=== PATIENT | male | born 1970 | race Caucasian/White ===

== ENCOUNTER 2018-11-18 06:40 | Day surgery (SDC) | payer OTHER ==
[~2018-11-18] VITALS: Ht 167.6 cm; Wt 103.0 kg
[~2018-11-18 06:40] MED LIST: DICYCLOMINE HCL20 MG PO; GEODON40 MG PO; LAMICTAL XR200 MG PO; LEVETIRACETAM750 M1 PO; MOBIC15 MG PO
--- NOTE | 2018-11-18 09:09 | NUR ---
11/18/18 0909 Karo Ramsey 0757 PT TO PACU SLEEPY BUT ABOUSABLE DENIES PAIN OR NAUSEA
--- NOTE | 2018-11-19 05:51 | OR ---
[facility] [address], [place] [address] Signed DATE OF OPERATION: 11/18/2018 SURGEON: Juju Ding MD PREOPERATIVE DIAGNOSES: 1. Chronic diarrhea. 2. Colonoscopy in 2000. POSTOPERATIVE DIAGNOSES: 1. Unremarkable colonoscopy. 2. Mildly indurated prostate gland. PROCEDURE PERFORMED: Colonoscopy with random cold biopsies. ESTIMATED BLOOD LOSS: None. INDICATIONS: Birdie is a 47-year-old gentleman who has had a long history of chronically loose stools. He spoke of a colonoscopy in [place], [place] back in 2000. He can not remember the exact results, but he does remember the term irritable bowel syndrome associated with diarrhea. He has had continued chronic loose stools. He has been working with his primary care provider. His stool studies have all been negative. He was therefore asked to see me for consideration of a colonoscopy with biopsies. He told me there is no family history of colon cancer, polyps or inflammatory bowel disease. In the office, I reviewed with him the nature of a colonoscopy. He does understand the nature of that test along with the risks including, but not limited to gas bloating, crampy abdominal pain, bleeding, perforation, requiring surgery, and missed diagnosis. He also understands the need for IV conscious sedation. He had expressed understanding and wished to proceed. PROCEDURE NOTE: Birdie was taken into our endoscopy suite and placed in the left lateral decubitus position. He was given IV sedation with 6 mg of Versed and 125 mcg of fentanyl. A digital rectal exam was performed and this was unremarkable except that his prostate gland has started to become a little indurated. No dominant nodules. No significant increase in size. He had good sphincter tone. After this, the adult colonoscope was introduced and advanced under direct visualization of camera into the cecum itself without difficulty. It took just a little extra sedation and some abdominal compression Electronically Signed By: JUJU DING MD 11/19/18 0551 PATIENT NAME: BIRDIE GAMING OPERATIVE REPORT DATE OF : 66 REPORT #: [id number] PHYSICIAN: JUJU DING MD PCP: JACIEL WILDER MD REPORT IS CONFIDENTIAL AND NOT TO BE RELEASED WITHOUT AUTHORIZATION [facility] [address], [place] [address] Signed in order to advance the scope. His prep was quite excellent. We could easily see the appendiceal orifice, the [place]'s foot and the ileocecal valve. We had taken pictures throughout for photodocumentation. We made multiple attempts to turn the camera into the terminal ileum without success. He had nice clean green liquid bilious fluid coming into the cecum. We saw no evidence of any inflammatory changes throughout the entire colon. There was no diverticulosis, no colonic polyps. There were no AV malformations. We took multiple random cold biopsies throughout the colon as the colonoscope was withdrawn. The rectum itself was unremarkable. Upon retroflexion of scope, we saw no additional pathology noted above the anal canal. After this, the gas was suctioned out. The colonoscope removed. Birdie tolerated the procedure quite well. RECOMMENDATIONS: I will see Birdie back in the office in the next 30-60 days for followup. It appears that he may indeed have irritable bowel syndrome with diarrhea component. Juju Ding MD ALB/MODL /[id number] cc: MD Jaciel Beltran MD Copies: JUJU DING MD, LELAND MD ~ Electronically Signed By: JUJU DING MD 11/19/18 0551 PATIENT NAME: BIRDIE GAMING OPERATIVE REPORT DATE OF : 66 REPORT #: [id number] PHYSICIAN: JUJU DING MD PCP: JACIEL WILDER MD REPORT IS CONFIDENTIAL AND NOT TO BE RELEASED WITHOUT AUTHORIZATION
== END 2018-11-18 08:41 | disposition home or self-care (01) ==
LOC: OPS 06:40 → DS 06:40 → OPS 06:45 → DS 07:30 → OPS 07:30
PROVIDERS: Colon & Rectal Surgery
PROC: 0DBE8ZX Excision of Large Intestine, Via Natural or Artificial Opening Endoscopic, Diagnostic (ICD-10-PCS; principal; 2018-11-18 06:45)
DX: K52.9 Noninfective gastroenteritis and colitis, unspecified (principal); R23.4 Changes in skin texture; G40.909 Epilepsy, unspecified, not intractable, without status epilepticus; Z79.899 Other long term (current) drug therapy
CPT/HCPCS: 99153; G0500; J2250; J3010; J7120